=== PATIENT | female | born 1940 | race Caucasian/White ===

== ENCOUNTER → 2017-02-15 | Outpatient (CLI) | payer OTHER | LOC: FIMAGING 09:55 | PROVIDERS: ATTEND Family Medicine | DX: Z12.31 Encounter for screening mammogram for malignant neoplasm of breast (principal) | CPT/HCPCS: G0202 ==

== ENCOUNTER → 2017-03-29 | Outpatient (CLI) | payer OTHER | LOC: FIMAGING 10:22 | PROVIDERS: ATTEND Family Medicine | DX: Z13.820 Encounter for screening for osteoporosis (principal); M85.80 Other specified disorders of bone density and structure, unspecified site; Z78.0 Asymptomatic menopausal state ==

== ENCOUNTER 2017-05-23 11:45 | Emergency (ER) | payer OTHER ==
[2017-05-23 12:21] VITALS: RESP 16
--- NOTE | 2017-05-23 14:00 | EDPHY ---
H & P Stated Complaint: SLipped on step; hit head on wall;no LOC;no neck pain; contusion L forehead HPI/ROS: CHIEF COMPLAINT: Head injury HISTORY OF PRESENT ILLNESS: The patient is a 76 y/o female with a history of hypertension arriving with her family member for evaluation of possible head injury secondary to a mechanical fall this afternoon. She slipped on a wet step and fell forward striking the right side of her head on the wall. She denies loss of consciousness or other injuries. She has a very slight headache, but no vision changes, difficulty with speech, neck pain, weakness or paresthesias. She denies any preceding symptoms leading to the fall including chest pain, dyspnea, fever, recent illness, or recent trauma. No anticoagulant use. REVIEW OF SYSTEMS: A ten point review of systems was performed and is negative with the exception of the items mentioned in the HPI. Past medical history: 1. Hypertension - chlorthalidone 2. Hard of hearing Past surgical history: Ortho surgeries Family history: Noncontributory Social history: Family member at bedside. Nonsmoker. Occasional alcohol use. General Appearance: Alert. Vital signs reviewed. BP 130/109 recorded at triage. Head: tender left frontotemporal cephalohematoma. Eyes: Pupils equal and round, no conjunctival injection, no discharge. Anicteric. ENT, Mouth: Right TM partially obscured by cerumen. Left TM normal. Mucous membranes are moist, no oropharyngeal erythema or edema. Neck: No lymphadenopathy, supple. Nontender to palpation over the cervical spine. Respiratory: Lungs are clear to auscultation; no wheezes, rales, or rhonchi. Cardiovascular: Regular rate and rhythm; no murmur, rub, or gallop. Gastrointestinal: Abdomen is soft and nontender, no masses or organomegaly, bowel sounds normal. Skin: Warm and dry, no rashes on exposed skin, normal color. Back: Nontender to palpation over the thoracolumbar spine. No CVAT. Extremities: No lower extremity edema, no calf tenderness or swelling. Neurological: Alert and oriented. Moving all four extremities easily and equally. Cranial nerves II through XII are examined and are intact (visual acuity not tested). Strength is 5 over 5 bilaterally with testing of all major motor groups. Sensation is intact to light touch over all 4 extremities. Gait is normal. Hywptd-sd-dcna is performed accurately. Psychiatric: Normal affect. - Personal History Current Tetanus Diphtheria and Acellular Pertussis (TDAP): Yes - Medical/Surgical History Hx Asthma: No Hx Chronic Respiratory Disease: No Hx Diabetes: No Hx Cardiac Disease: No Hx Renal Disease: No Hx Cirrhosis: No Hx Alcoholism: No Hx HIV/AIDS: No Hx Splenectomy or Spleen Trauma: No Other PMH: HTN, C STENOSIS, FX RT FEMUR, RT KNEE MENISCUS REPAIR, TUBAL LIGATION - Social History Smoking Status: Never smoked Constitutional: Initial Vital Signs Temperature (C) 36.5 C 05/23/17 12:14 Heart Rate 85 05/23/17 12:14 Respiratory Rate 16 05/23/17 12:14 Blood Pressure 130/109 H 05/23/17 12:14 O2 Sat (%) 98 05/23/17 12:14 O2 Delivery Mode Room Air Allergies/Adverse Reactions: clarithromycin [From Biaxin] Allergy (Intermediate, Verified 05/24/17 13:49) Abdominal Cramping Sulfa (Sulfonamide Antibiotics) Allergy (Unknown, Verified 05/24/17 13:49) Home Medications: Medication Instructions Recorded Calcium Carbonate/Vitamin D3 1 each PO DAILY 12/07/14 [CALCIUM 600 + VIT D TABLET] Chlorthalidone [Chlorthalidone 25 25 mg PO DAILY 12/07/14 mg (*)] Estradiol [Estrace Vaginal] 1 gm VG SUWE@2100 12/07/14 Multivitamins [Multivitamin (*)] 1 each PO DAILY 12/07/14 Methocarbamol [Robaxin 750 mg (*)] 750 mg PO QID PRN #60 tab 12/17/14 Ondansetron Odt [Zofran Odt 4 mg 4 - 8 mg PO Q6 PRN #60 tab 12/17/14 (*)] oxyCODONE IR [Oxycodone Ir (*)] 5 - 10 mg PO Q4 PRN #60 tab 12/17/14 Medical Decision Making ED Course/Re-evaluation: This is a healthy 76 y/o female who presents with a scalp hematoma secondary to what she describes as a mechanical fall. She has a normal neuro exam. She is unable to be excluded for imaging under [place] [facility] Rules due to her age. Discussed options for imaging with her and she has opted to decline imaging or further evaluation here. She understands that there is the possibility of skull fracture and/or intracranial injury. She understands that she could have a life threatening injury. She is able to make her own medical decisions. She will be discharged home with standard head injury care and follow up instructions. Strict return precautions discussed. They are comfortable with plan for discharge. She is aware of her elevated blood pressure in the ED. She will have BP rechecked by PCP. Differential Diagnosis: DDX includes but is not limited to skull fracture, intracranial injury, cervical spine injury, contusion, laceration. Departure - Departure Disposition: Home, Routine, Self-Care Clinical Impression: Scalp hematoma Qualifiers: Encounter type: initial encounter Qualified Code(s): S00.03XA - Contusion of scalp, initial encounter Head injury Qualifiers: Encounter type: initial encounter Qualified Code(s): S09.90XA - Unspecified injury of head, initial encounter Condition: Good Instructions: Hematoma (ED) Additional Instructions: 1. Apply ice to sore areas intermittently over the next 24 hours. 2. Use Tylenol as directed if needed for pain over the next couple days. 3. Follow up with your primary care provider for any unimproved symptoms over the next few days. 4. Return to the ED for severe pain, weakness or numbness on one side of your body, vision changes, difficulty with speech, confusion, seizure, or other worsening of condition. Referrals: Roel Bennett, DO [Primary Care Provider] - As per Instructions Report Scribed for: Roslyn Castillo Report Scribed by: Sammi Patel Date of Report: 05/23/17 Time of Report: 14:17 Physician Review and Approval Statement: 05/30/17 07:45 Portions of this chart were entered by a medical record librarian. I personally performed the history, PE, MDM. I have reviewed the chart and agree with the contents.
[2017-05-23 14:52] VITALS: BP 139/89; PULSE 95; TEMP 98.4; O2SAT 94
== END 2017-05-23 14:51 | disposition home or self-care (01) ==
DX: S00.03XA Contusion of scalp, initial encounter (principal); I10 Essential (primary) hypertension; W01.198A Fall on same level from slipping, tripping and stumbling with subsequent striking against other object, initial encounter; Y99.8 Other external cause status; Y93.89 Activity, other specified

== ENCOUNTER 2017-05-24 13:40 | Emergency (ER) | payer OTHER ==
[2017-05-24 13:53] VITALS: BP 125/90; PULSE 78; RESP 18; TEMP 97.5; O2SAT 98
--- NOTE | 2017-05-24 14:31 | EDPHY ---
H & P Stated Complaint: Xmas stocking andres fell and landed on R foot - Personal History Current Tetanus Diphtheria and Acellular Pertussis (TDAP): Yes - Medical/Surgical History Hx Asthma: No Hx Chronic Respiratory Disease: No Hx Diabetes: No Hx Cardiac Disease: No Hx Renal Disease: No Hx Cirrhosis: No Hx Alcoholism: No Hx HIV/AIDS: No Hx Splenectomy or Spleen Trauma: No Other PMH: HTN, C STENOSIS, FX RT FEMUR, RT KNEE MENISCUS REPAIR, TUBAL LIGATION - Social History Smoking Status: Never smoked HPI/ROS: Chief complaint: Right foot injury History of present illness: This is a 76-year-old female who presents to the emergency department for evaluation of a right foot injury. Patient states just prior to arrival the hook that was holding up a stocking fell and struck the top of her foot. She sustained a small puncture wound. She has developed a bruise. It hurts. She is still able to ambulate. No report of abnormal coolness or paresthesias in the foot. No other trauma reported. Tetanus up-to- date. (Lucius Hernandez) - Physical Exam Exam: General: Alert, nontoxic Skin: There is a small puncture wound to the dorsum of the right foot. Associated contusion. Musculoskeletal: Patient is moving the right ankle in all digits of the right foot well. She is ambulating well. Vascular: DP and PT pulses 2+. Capillary refill brisk in the right foot. Neurologic: Sensation intact throughout the right foot. (Lucius Hernandez) Constitutional: Initial Vital Signs Temperature (C) 36.4 C 05/24/17 13:52 Heart Rate 78 05/24/17 13:52 Respiratory Rate 18 05/24/17 13:52 Blood Pressure 125/90 H 05/24/17 13:52 O2 Sat (%) 98 05/24/17 13:52 O2 Delivery Mode Room Air Allergies/Adverse Reactions: clarithromycin [From Biaxin] Allergy (Intermediate, Verified 05/24/17 13:49) Abdominal Cramping Sulfa (Sulfonamide Antibiotics) Allergy (Unknown, Verified 05/24/17 13:49) Home Medications: Medication Instructions Recorded Calcium Carbonate/Vitamin D3 1 each PO DAILY 12/07/14 [CALCIUM 600 + VIT D TABLET] Chlorthalidone [Chlorthalidone 25 25 mg PO DAILY 12/07/14 mg (*)] Estradiol [Estrace Vaginal] 1 gm VG SUWE@2100 12/07/14 Multivitamins [Multivitamin (*)] 1 each PO DAILY 12/07/14 Methocarbamol [Robaxin 750 mg (*)] 750 mg PO QID PRN #60 tab 12/17/14 Ondansetron Odt [Zofran Odt 4 mg 4 - 8 mg PO Q6 PRN #60 tab 12/17/14 (*)] oxyCODONE IR [Oxycodone Ir (*)] 5 - 10 mg PO Q4 PRN #60 tab 12/17/14 Medical Decision Making - Diagnostics Imaging: I viewed and interpreted images myself ED Course/Re-evaluation: Patient seen under the supervision of my secondary supervising physician Dr. Roslyn Castillo. Patient presents to the emergency department for right foot injury. The foot is neurovascularly intact. X-rays negative. Small puncture wound and contusion is noted. The wound is cleaned and dressed. Patient is discharged home. Home care is discussed. Return precautions are given. Patient voiced understanding and agreement with plan. (Lucius Hernandez) The patient was evaluated and managed by the physician research assistant member. I have reviewed this chart and I agree with the findings and plan of care as documented , as indicated by my signature. I am the secondary supervising physician. ( Roslyn Castillo) Differential Diagnosis: Included but not limited to contusion, sprain or strain, puncture wound, laceration, bony fracture (Lucius Hernandez) Departure - Departure Disposition: Home, Routine, Self-Care Clinical Impression: Puncture wound Contusion Qualifiers: Encounter type: initial encounter Contusion area: foot Laterality: right Qualified Code(s): S90.31XA - Contusion of right foot, initial encounter Condition: Good Instructions: Puncture Wound (ED), Contusion in Adults (ED) Additional Instructions: Follow-up with your primary care doctor this week for recheck If symptoms worsen or new symptoms develop return to the emergency room for recheck Referrals: Roel Bennett, [Primary Care Provider] - As per Instructions
== END 2017-05-24 14:45 | disposition home or self-care (01) ==
DX: S91.331A Puncture wound without foreign body, right foot, initial encounter (principal); S90.31XA Contusion of right foot, initial encounter; I10 Essential (primary) hypertension; W18.09XA Striking against other object with subsequent fall, initial encounter

== ENCOUNTER → 2017-06-04 | Outpatient (CLI) | payer OTHER | LOC: FIMAGING 12:52 | PROVIDERS: ATTEND Psychiatry & Neurology Neurology | DX: R20.2 Paresthesia of skin (principal); R93.0 Abnormal findings on diagnostic imaging of skull and head, not elsewhere classified; M48.54XS Collapsed vertebra, not elsewhere classified, thoracic region, sequela of fracture ==